=== PATIENT | male | born 1980 | race African-American/Black ===

== ENCOUNTER 2022-05-14 09:00 | Outpatient (RCR) | payer BC, SELFPAY | END 2022-06-23 14:16 | disposition home or self-care (01) | PROVIDERS: PCP Surgery; Visit Provider Orthopaedic Surgery Sports Medicine | DX: M25.562 Pain in left knee (principal); Z51.89 Encounter for other specified aftercare | CPT/HCPCS: 97110; 97140 ==

== ENCOUNTER 2022-06-29 10:03 | Outpatient (CLI) | payer BC, SELFPAY ==
--- NOTE | 2022-06-29 10:15 | MR_ITS ---
[address] [address] Phone:?[phone] Fax:?[phone] Referring Physician Information: Cy Vega M.D. [id number] [facility] [address] Phone:?[phone] Fax:?[phone] Patient:Yohana Ledezma D.O.B:?1980 Sex:?Male Phone:?[phone] [facility] MRN:?[id number] Exam Date:?06/29/2022 ? EXAM: MRI of the LEFT KNEE, without contrast CLINICAL INFORMATION: Male, 42 years old, with left knee pain with history of ACL reconstruction. INDICATION: Evaluate for cyclops lesion. PRIOR SURGERY: None reported. PLAIN FILMS: None available. COMPARISONS: Left knee MRI dated 12/10/2021. TECHNICAL INFORMATION: Using a 1.5T MR scanner and a localizing surface coil: sagittals: PD, PDFS coronals: PD, T2FS axials: PD, PDFS SEDATION: None CONTRAST: None FINDINGS: Knee joint: Effusion: Large left knee effusion. Popliteal cyst: Medium-large, inferiorly leaking Erickson cyst. Loose bodies: None. Subcutaneous and extra-articular soft tissues: Unremarkable. Ligaments: ACL: Status post ACL graft reconstruction with a bone-patellar tendon-bone (BPTB) autograft. There is moderate perigraft fibrosis with a slender cyclops lesion measuring 2.4 x 1.3 x 0.6 cm (sagittal PD series 5 image 17 and coronal STIR series 8 image 11). PCL: Intact PCL, without acute or chronic injury. MCL: Mild thickening involving the proximal one third of the superficial MCL, without MCL tear. LCL: Intact LCL, without injury. Posterolateral corner: No posterolateral corner soft tissue injury. Popliteus, biceps femoris, iliotibial band, popliteofibular ligament and lateral gastrocnemius are intact. Posteromedial corner: No posteromedial corner soft tissue injury. Semimembranosus, pes anserine tendons and posterior oblique ligament are without injury, tendinopathy or bursitis. Extensor mechanism: Patellar tendon: Postsurgical changes reflect the autograft harvest site. No patellar tendinopathy or tear. Expected postoperative changes are also noted in the inferior pole of the patella and the tibial tubercle. Quadriceps tendon: Intact, without tendinopathy. Retinacula: Medial and lateral retinacula are intact. Fat pads: Unremarkable infrapatellar Hoffa's, quadriceps and prefemoral fat pads. Medial compartment: Medial meniscus: Abnormal signal and irregularity is present throughout the posterior meniscal capsular junction, without discrete tear (sagittal PDFS series 6 images 813). Medial femoral condyle: Minimal signal heterogeneity, surface irregularity, and thinning of the articular cartilage without full-thickness chondral loss or reactive osseous changes. Medial tibial plateau: No chondromalacia or osteochondral abnormality. Lateral compartment: Lateral meniscus: No articular surface, meniscosynovial junction or root tear. No displacement, extrusion or parameniscal cyst. Lateral femoral condyle: No chondromalacia or osteochondral abnormality. Lateral tibial plateau: No chondromalacia or osteochondral abnormality. Patellofemoral joint: Patella: Broad-based grade II chondromalacia of the medial patellar facet with superimposed chondral fissuring and a 4 x 7 mm area of chondral delamination (sagittal PDFS series 6 image 14 and axial T2FS series 4 image 10). Trochlea: Broad-based mild grade II chondromalacia within the central sulcus, without reactive osseous changes. Proximal tibiofibular joint: Unremarkable, without evidence of ligament sprain injury, joint effusion or adjacent marrow edema. Bones: Expected postoperative changes from ACL reconstruction are noted in the distal femur and proximal tibia. IMPRESSION: 1. Status post ACL graft reconstruction. The ACL graft is intact. However, there is moderate perigraft fibrosis and a slender cyclops lesion measuring 2.4 x 1.3 x 0.6 cm. 2. Mild chondromalacia of the patellofemoral compartment with focal fissuring and a 4 x 7 mm area of chondral delamination of the medial patellar facet. This has progressed since the prior study dated 12/10/2021. 3. Posterior meniscocapsular junction sprain of the medial meniscus, without discrete tear. 4. Large knee joint effusion with a medium-large, inferiorly leaking Erickson cyst. 5. Chronic sequela of a low-grade proximal MCL sprain, without tear. No PCL or LCL sprain/tear. 6. No lateral meniscal tear. 7. No significant osteochondral abnormality of the medial or lateral compartment. BC Electronically signed on 06/29/2022 12:08:00 PM by Rodo Martins M.D.
== END 2022-06-29 10:04 | disposition home or self-care (01) ==
LOC: MRI 10:04
PROVIDERS: PCP Surgery; Visit Provider Orthopaedic Surgery Sports Medicine
DX: M25.562 Pain in left knee (principal); M22.42 Chondromalacia patellae, left knee; M25.462 Effusion, left knee; S83.412A Sprain of medial collateral ligament of left knee, initial encounter
CPT/HCPCS: 73721

== ENCOUNTER 2022-08-11 10:12 | Day surgery (SDC) | payer BC, SELFPAY ==
[2022-08-11] VITALS (14 sets, daily range): BP systolic 100–132; BP diastolic 67–83; PULSE 60–81; RESP 13–17; TEMP 36.1–36.9; O2SAT 93–99; BMI 34.7
[2022-08-11] MEDS: LACTATED RINGERS 1000 ML 1,000 ML 100 ML IV ×2 (10:30→13:51)
[2022-08-11] MEDS: SODIUM CHLORIDE 0.9 % (FLUSH) 10 ML SYRINGE IVF (10:59)
[2022-08-11] MEDS: CEFAZOLIN 2 GM in 0.9 % SODIUM CHLORIDE Mini-bag 100 ML IVPB (13:20)
[2022-08-11] MEDS: ROPIVACAINE 0.5% 30 ML 150 MG INJECTION (13:35)
--- NOTE | 2022-08-11 13:47 | W.ANESCHARGE ---
Anesthesia Charges Start Date/Time Anesthesia Start Date: 08/11/22 Anesthesia Start Time: 13:04 Stop Date/Time Anesthesia Stop Date: 08/11/22 Anesthesia Stop Time: 14:06 Summary Emergency: No
--- NOTE | 2022-08-11 14:18 | W.ANESCHARGE ---
Anesthesia Charges Start Date/Time Anesthesia Start Date: 08/11/22 Anesthesia Start Time: 13:04 Stop Date/Time Anesthesia Stop Date: 08/11/22 Anesthesia Stop Time: 14:06 Summary Emergency: No
--- NOTE | 2022-08-11 14:37 | P.ORPRC_ITS ---
Procedure Note Date of procedure: 08/11/22 Procedure: PREOPERATIVE DIAGNOSIS: 1. 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 Left knee ACL partial thickness tearing/lack of integration anterior portion after prior ACL BTB autograft reconstruction (01/2022) PROCEDURE: 1. Left knee arthroscopic limited debridement of anterior ACL scar tissue/partial tearing SURGEON: Cy Vega M.D. CENTRAL STATION OPERATOR: Romulo Goldberg PA-C. Of note, an bilingual office assistant was critical for this case to aid in patient positioning, knee manipulation, instrument exchange, and closure. ANESTHESIA: Spinal EBL: 2ml TOURNIQUET: 30 min at 300 torr COMPLICATIONS: None evident INDICATIONS: The patient is a pleasant 42-year-old who has experienced left knee pain and recurrent effusions. Physical exam was concerning for cyclops lesion/anterior scar which was confirmed on MRI. His pain is primarily with terminal extension/hyperextension. Additionally, attempted nonoperative management has been tried, and failed. Thus, surgery was recommended. FINDINGS: Partial-thickness tearing/lack of integration completely of ACL after prior reconstruction. The anterior fibers had striations and lacked integration. There was some fibrous tissue/scar tissue related to partial- thickness tearing. 2/3 or more of the ACL still felt to be intact. This involved the mid and posterior portions. With full extension, the ACL appeared to clear the notch despite the patient's narrowed notch anatomy. Anterior drawer and Pawel's test was performed intraoperatively with the scope viewing the ACL. This showed the ACL to this remain intact and resist that anterior translation force. In addition, pivot shift test was performed (not with the scope in the knee) but showed a smooth transition without pivoting or thud- clunk. DESCRIPTION OF PROCEDURE: After a thorough discussion of risks, benefits, and alternatives, the patient was brought to the operating room and placed upon the operating table. Induction of anesthesia was undertaken as previously noted. 3 g IV Ancef was administered within 1 hr of incision preoperatively. Appropriate time-out was performed identifying proper patient, site, and procedure. The left lower extremity was prepped and draped in the appropriate sterile fashion using ChloraPrep. The limb was exsanguinated and tourniquet inflated. Anterolateral and anteromedial portals were established with an 11 blade, and a diagnostic arthroscopy was performed. This identified the findings as noted above. Following the diagnostic arthroscopy, the ACL was further inspected and probed. This scar tissue was seen anteriorly. With full extension this would impinge within the notch. This was debrided with a torpedo shaver. Further probing of the ACL showed the midportion and posterior portion fibers to be intact. The anterior fibers were striated and lacked integration to the majority of the ACL. This was debrided with the torpedo shaver as well last time. It was felt that a proximally 2/3 of the ACL remained trevino and intact while the anterior 1/3 did not have a good integration. The menisci still were trevino and had an intact posterior roots and no loose bodies were identified. At this stage, the shaver was reinserted into the suprapatellar pouch and all remaining debris was evacuated. Instruments were removed, excess fluid was drained, and closure performed with 4-0 Monocryl with Steri-Strips. Dressings were applied, the tourniquet deflated, and the patient was awoken from anesthesia and transferred to the PACU in stable condition. PLAN: 1. Weightbear as tolerated operative extremity. Crutch / walker ambulation assistance PRN. Straight leg raise to be initiated starting tomorrow by the patient. 2. Ice, acetominophen and/or ibuprofen, and Percocet for pain as needed. 3. Knee range of motion and quad sets/straight leg raise regularly 4. Follow up with PA visit in 7-10 days. for a wound check. Initiate physical therapy at that time
== END 2022-08-11 16:21 | disposition home or self-care (01) ==
PROVIDERS: PCP Surgery; Visit Provider Orthopaedic Surgery Sports Medicine
PROC: (CPT 29870; principal; 2022-08-11 11:45)
DX: M25.862 Other specified joint disorders, left knee (principal); M25.562 Pain in left knee
CPT/HCPCS: 29877; 01400; J0690; J1100; J2250; J2400; J2405; J2704; J2795; J3010; J7120